=== PATIENT | male | born 1970 | race Caucasian/White ===

== ENCOUNTER 2016-08-02 09:06 | Emergency (ER) | payer OTHER ==
[~2016-08-02] VITALS: Ht 167.6 cm; Wt 81.6 kg
[~2016-08-02 09:06] MED LIST: ACET325T9 PO; CIPR500T94 PO; HYDR-971 PO; IBUP-1060 PO; ZOLP10TA PO
--- NOTE | 2016-08-02 10:12 | PHYS DOC ---
Past Medical History Past Medical History: Anxiety, High Cholesterol Additional Past Medical Histor: KNEE PROBLEMS Past Surgical History: Other Additional Past Surgical Histo: L vericoseal, 3 L knee, R and L foot Alcohol Use: Occasionally Drug Use: None Adult General Chief Complaint Chief Complaint: DIZZY/LIGHT HEADED [facility] HPI Patient is a 46 year old male presents with a three-day history of cough, congestion, generalized weakness, fevers, chills, myalgias and arthralgias. Patient reports his MAXIMUM TEMPERATURE at home was 102. He does report a productive cough that worsens at night. He also complains of sinus pressure/ congestion. He denies antibiotic use, hospitalization, foreign travel within the past 90 days. Patient denies any history of cardiopulmonary disease. He states he is a nonsmoker. Review of Systems Review of Systems Constitutional: Denies fever or chills [] Eyes: Denies change in visual acuity, redness, or eye pain [] HENT: Denies nasal congestion or sore throat [] Respiratory: Denies cough or shortness of breath [] Cardiovascular: No additional information not addressed in HPI [] GI: Denies abdominal pain, nausea, vomiting, bloody stools or diarrhea [] : Denies dysuria or hematuria [] Musculoskeletal: Denies back pain or joint pain [] Integument: Denies rash or skin lesions [] Neurologic: Denies headache, focal weakness or sensory changes [] Endocrine: Denies polyuria or polydipsia [] Allergies Allergies Allergies Coded Allergies Type Severity Reaction Last Updated Verified codeine Allergy Intermediate rash, itching 11/01/15 Yes isotretinoin Adverse Reaction Severe "i got an infection on my chest, it left scars" 11/01/15 Yes morphine Adverse Reaction Intermediate "i feel anxious" 11/01/15 Yes Physical Exam Physical Exam Constitutional: Well developed, well nourished, no acute distress, non-toxic appearance. [] HENT: Normocephalic, atraumatic, bilateral external ears normal, oropharynx moist, no oral exudates, nose normal. [] Eyes: PERRLA, EOMI, conjunctiva normal, no discharge. [] Neck: Normal range of motion, no tenderness, supple, no stridor. There is no meningismus. There is bilateral anterior and posterior cervical lymphadenopathy. Cardiovascular:Heart rate regular rhythm, no murmur [] Lungs & Thorax: There is no respiratory distress or respiratory fatigue. Patient 's lung sounds are clear to auscultation bilaterally. Patient is able to speak in full sentences. Oxygen saturation is 98-99% on room air. Abdomen: Bowel sounds normal, soft, no tenderness, no masses, no pulsatile masses. [] Skin: Warm, dry, no erythema, no rash. [] Back: No tenderness, no CVA tenderness. [] Extremities: No tenderness, no cyanosis, no clubbing, ROM intact, no edema. [] Neurologic: Alert and oriented X 3, normal motor function, normal sensory function, no focal deficits noted. [] Psychologic: Affect normal, judgement normal, mood normal. [] Current Patient Data Vital Signs Vital Signs Date Time Temp Pulse Resp B/P Pulse Ox O2 Delivery O2 Flow Rate FiO2 08/02/16 09:34 98.8 97 18 148/88 99 Room Air 98.8 Lab Values Laboratory Tests Test 08/02/16 09:38 Influenza Type A Antigen Negative (NEGATIVE) Influenza Type B Antigen Positive (NEGATIVE) EKG EKG [] Radiology/Procedures Radiology/Procedures PA and lateral chest x-ray was performed with adequate technique and reviewed by the radiologist. There is no evidence of consolidation or infiltrate. There is no evidence of acute intrathoracic process. Course & Med Decision Making Course & Med Decision Making Patient has a history of generalized anxiety disorder he has been seen at this facility before. He has been seen here before prescribed Ambien for insomnia. He is requesting a prescription for Ambien again. I do feel comfortable prescribing a 5 mg Ambien tablets to be taken at bedtime. and to take medication as prescribed. Dragon Disclaimer Dragon Disclaimer This electronic medical record was generated, in whole or in part, using a voice recognition dictation system. Departure Departure Impression: Primary Impression: Influenza B Additional Impression: Insomnia Disposition: 01 HOME, SELF-CARE Condition: GOOD Referrals: ANDREW CAMPOS MD (PCP) Patient Instructions: Influenza, Adult, [id number], Insomnia-Brief Additional Instructions: 1. You tested positive for influenza B. 2. Review the discharge instructions provided for self care and reasons to return to the emergency department. 3. Contact her primary care doctor's office this afternoon or tomorrow to schedule follow-up appointment any questions or concerns. Scripts Zolpidem Tartrate (Ambien)5 Mg Tablet1 Tab PO QHS insomnia #10 TAB Ref 2 Prov:DEANDRA SHEFFIELD 08/02/16 Hydrocodone/Chlorphen Polis (Tussionex Pennkinetic Susp)480 Ml [id number] Ml PO BID COUGH #100 ML Prov:DEANDRA SHEFFIELD 08/02/16 Problem Qualifiers Additional Impression: Insomnia Insomnia type: primary Qualified Code: F51.01 - Primary insomnia DEANDRA SHEFFIELD Aug 02, 2016 10:12
[2016-08-02 10:20] LABS: OBC FLU VALID
--- NOTE | 2016-08-02 10:20 | RAD ---
Chest, 2 views, 08/02/2016: History: Cough, congestion, fever Comparison is made to a study from 03/13/2015. The heart size and pulmonary vascularity are normal. The depth of inspiration is not as good as on the prior study. No acute infiltrates are seen. There is no evidence of pleural fluid. IMPRESSION: No acute cardiopulmonary abnormality is detected.
[2016-08-02 10:30] VITALS: BP 140/78
[2016-08-02] MEDS ORDERED: ZOLP5TAB PO (11:00)
[2016-08-02] MEDS ORDERED: HYDR115S2 PO (11:00)
== END 2016-08-02 11:08 | disposition home or self-care (01) ==
LOC: ER 09:06
DX: J10.1 Influenza due to other identified influenza virus with other respiratory manifestations (principal); G47.00 Insomnia, unspecified; F41.9 Anxiety disorder, unspecified; E78.00 Pure hypercholesterolemia, unspecified; Z88.5 Allergy status to narcotic agent; Z88.8 Allergy status to other drugs, medicaments and biological substances
CPT/HCPCS: 71020; 87804; 99285-25

== ENCOUNTER 2016-10-23 16:58 | Emergency (ER) | payer OTHER ==
[~2016-10-23] VITALS: Ht 170.2 cm; Wt 80.7 kg
[~2016-10-23 16:58] MED LIST changes: +HYDR115S2 PO; +ZOLP5TAB PO
[2016-10-23 17:38] VITALS: BP 179/109
--- NOTE | 2016-10-23 18:08 | PHYS DOC ---
Past Medical History Past Medical History: Anxiety, High Cholesterol Additional Past Medical Histor: KNEE PROBLEMS Past Surgical History: Other Additional Past Surgical Histo: L vericoseal, 3 L knee, R and L foot Alcohol Use: Occasionally Drug Use: None Adult General Chief Complaint Chief Complaint: ANXIETY/PANIC ATTACK [facility] HPI Patient is a 46 year old male presents emergency department stating that he is having problems with his anxiety as well as not being able to sleep at night. Patient states that he's been taking Paxil. He states that he stopped taking Paxil and started back on it 2 weeks ago. He states that his anxiety has becoming increasingly worse. He does have a elevated blood pressure at this time. Patient also states that he takes Ambien 20 mg a night for sleep. He states that he obtains his prescriptions from Dr. Campos. He states that he did have a prescription filled on 10/09/2016 of 30 tablets of Ambien. He states that he is currently out of the prescription. Patient also states that his anxiety level is elevated at this time. It is requesting something to help with his anxiety. Review of Systems Review of Systems Constitutional: Denies fever or chills [] Eyes: Denies change in visual acuity, redness, or eye pain [] HENT: Denies nasal congestion or sore throat [] Respiratory: Denies cough or shortness of breath [] Cardiovascular: No additional information not addressed in HPI [] GI: Denies abdominal pain, nausea, vomiting, bloody stools or diarrhea [] : Denies dysuria or hematuria [] Musculoskeletal: Denies back pain or joint pain [] Integument: Denies rash or skin lesions [] Neurologic: Denies headache, focal weakness or sensory changes []C/o anxiety and unable to sleep Allergies Allergies Allergies Coded Allergies Type Severity Reaction Last Updated Verified codeine Allergy Intermediate rash, itching 10/23/16 Yes isotretinoin Adverse Reaction Severe "i got an infection on my chest, it left scars" 10/23/16 Yes morphine Adverse Reaction Intermediate "i feel anxious" 10/23/16 Yes Physical Exam Physical Exam Constitutional: Well developed, well nourished, no acute distress, non-toxic appearance. [] HENT: Normocephalic, atraumatic, bilateral external ears normal, oropharynx moist, no oral exudates, nose normal. [] Eyes: PERRLA, EOMI, conjunctiva normal, no discharge. [] Neck: Normal range of motion, no tenderness, supple, no stridor. [] Cardiovascular:Heart rate regular rhythm, no murmur [] Lungs & Thorax: Bilateral breath sounds clear to auscultation [] Skin: Warm, dry, no erythema, no rash. [] Back: No tenderness Extremities: No tenderness, no cyanosis, no clubbing, ROM intact, no edema. [] Neurologic: Alert and oriented X 3, normal motor function, normal sensory function, no focal deficits noted. [] Psychologic: Affect normal, judgement normal, mood normal. [] Current Patient Data Vital Signs Vital Signs Date Time Temp Pulse Resp B/P Pulse Ox O2 Delivery O2 Flow Rate FiO2 10/23/16 17:38 98.6 107 18 97 Room Air 98.6 EKG EKG [] Radiology/Procedures Radiology/Procedures [] Course & Med Decision Making Course & Med Decision Making Pertinent Labs and Imaging studies reviewed. (See chart for details) Spoke with patient's in regards to taking his medications appropriately. Spoke with him about his Ambien being 10 mg on a nightly basis as opposed to 20 mg. Patient states that his primary care physician will not provide him with more Ambien than the normal dose prescribed to 10 mg tablets on a nightly basis. Patient states he has come here to the emergency department because he is taking 20 mg nightly and needs more. Patient also states that he had stopped taking his Paxil and currently restarted 2 weeks ago and is having anxiety issues. Spoke with patient in regards to not stopping the Paxil abruptly as it takes a while for the medication to become effective. Patient will be provided with Vistaril here in the emergency department. Patient was informed that he would not be receiving an Ambien prescription as he is not taking the medication appropriately. Patient will be discharged home in stable condition recommended following up with his primary care physician in the next 3-5 days. Signs and symptoms to return back to emergency department as been provided. So informed patient to monitor his blood pressure as it was elevated here in the emergency department. I asked him to keep a log and take it to his primary care physician. [] Dragon Disclaimer Dragon Disclaimer This electronic medical record was generated, in whole or in part, using a voice recognition dictation system. Departure Departure Impression: Primary Impression: Acute anxiety Disposition: HOME, SELF-CARE Condition: STABLE Referrals: ANDREW CAMPOS MD (PCP) Patient Instructions: Anxiety and Panic Attacks, [id number] Additional Instructions: You have been evaluated for your complaint of anxiety as well as the inability to sleep. Take your medications as prescribed. Do not double your dose of Ambien as you have been doing. Contact your primary care physician in regards to your anxiety not being controlled with the Paxil. It is advisable that you monitor your blood pressure is slightly elevated here in the emergency department keep a log of that and take it to your primary care physician. Follow-up through primary care physician in the next 3-5 days. Return back to emergency department sign symptoms of become worse. AUTUMN GAMEZ APRN Oct 23, 2016 18:08
[2016-10-23] MEDS ORDERED: HYDROXYZINE PAMOATE 25 MG CAPSULE PO ONE (18:15)
== END 2016-10-23 18:28 | disposition home or self-care (01) ==
LOC: ER 16:58
DX: F41.9 Anxiety disorder, unspecified (principal); E78.00 Pure hypercholesterolemia, unspecified; Z88.5 Allergy status to narcotic agent; Z88.8 Allergy status to other drugs, medicaments and biological substances
CPT/HCPCS: 99284; Q0177

== ENCOUNTER 2017-07-12 09:58 | Emergency (ER) | payer SELFPAY, OTHER ==
[2017-07-12] MEDS: HYDROcodone/APAP 7.5/325MG 1 TAB TABLET PO (10:19)
[2017-07-12] MEDS: ONDANSETRON ODT 4 MG TAB.RAPDIS. PO (10:19)
== END 2017-07-12 10:37 | disposition home or self-care (01) ==
LOC: ER 09:58
DX: S46.912A Strain of unspecified muscle, fascia and tendon at shoulder and upper arm level, left arm, initial encounter (principal); F41.9 Anxiety disorder, unspecified; E78.00 Pure hypercholesterolemia, unspecified; Z88.5 Allergy status to narcotic agent; Z88.8 Allergy status to other drugs, medicaments and biological substances; X58.XXXA Exposure to other specified factors, initial encounter; Y93.B3 Activity, free weights; Y92.89 Other specified places as the place of occurrence of the external cause; Y99.8 Other external cause status
CPT/HCPCS: 29105; 73030; 99284-25; Q0162

== ENCOUNTER → 2017-07-13 | Outpatient (CLI) | payer SELFPAY | END | disposition home or self-care (01) | LOC: MRI 14:12 | DX: S43.82XD Sprain of other specified parts of left shoulder girdle, subsequent encounter (principal); X58.XXXD Exposure to other specified factors, subsequent encounter | CPT/HCPCS: 73221 ==